=== PATIENT | male | born 1945 | race Caucasian/White ===

== ENCOUNTER 2017-02-17 07:47 | Outpatient (CLI) | payer MEDICARE ==
[2017-02-17 14:39] LABS: CHOL/HDL RATIO 3.5 (<5.0); CHOLESTEROL 152 mg/dL; HDL CHOLESTEROL 43 mg/dL; LDL/HDL RATIO 2.2 (<3.6); TRIGLYCERIDES 81 mg/dL; VLDL CHOLESTEROL 16 mg/dL
== END 2017-02-17 07:48 | disposition home or self-care (01) ==
LOC: LAB.R 07:47
PROVIDERS: ATTEND Internal Medicine
DX: I48.2 Chronic atrial fibrillation (principal); E78.2 Mixed hyperlipidemia
CPT/HCPCS: 80061; 84443

== ENCOUNTER 2017-02-21 09:15 | Outpatient (CLI) | payer MEDICARE | END 2017-02-21 09:16 | disposition home or self-care (01) | DX: I48.2 Chronic atrial fibrillation (principal) ==

== ENCOUNTER 2017-05-04 07:04 | Outpatient (CLI) | payer MEDICARE ==
[2017-05-04 12:35] VITALS: BP 122/68
--- NOTE | 2017-05-05 06:31 | CARDIAC PROCEDURE NOTE ---
DATE OF SERVICE: 05/04/2017 00:00:00 PROCEDURE: Los protocol treadmill for left ventricular echocardiographic imaging. INDICATION: Patient with intermittent atrial fibrillation anticipating an arduous trek and needing cl earance. PROCEDURE IN DETAIL: The patient was exercising in the standard fashion for over 9 minutes. He achiev ed a heart rate well above 85% maximum predicted. He experienced no chest pain, palpations or signifi cant dysrhythmias. No atrial fibrillation was encountered. He had no diagnostic ST or T-wave changes. His blood pressure response was slightly hypertensive. IMPRESSION: Negative treadmill for evidence of ischemia. See echocardiographic interpretation for det ails. JOB #: [id number] EXT JOB #:[id number]
== END 2017-05-04 07:05 | disposition home or self-care (01) ==
LOC: DI 07:04
PROVIDERS: ATTEND Internal Medicine
DX: I48.2 Chronic atrial fibrillation (principal)
CPT/HCPCS: 93350

== ENCOUNTER 2018-05-02 08:00 | Outpatient (CLI) | payer MEDICARE ==
[2018-05-02 11:54] LABS: BASOPHILS % (AUTO) 0.7 %; EOSINOPHILS # (AUTO) 0.1 10^3/uL (0.0-0.7); EOSINOPHILS % (AUTO) 2.6 %; HGB - HEMOGLOBIN 14.1 g/dL (14.0-18.0); LYMPHOCYTES # (AUTO) 1.7 10^3/uL (1.5-3.5); LYMPHOCYTES % (AUTO) 32.2 %; MEAN CORPUSCULAR HEMOGLOBIN 29.8 pg (27.0-31.0); MEAN CORPUSCULAR HGB CONC 33.8 g/dL (32.0-36.0); MEAN CORPUSCULAR VOLUME 88.1 fL (80.0-94.0); MEAN PLATELET VOLUME 7.5 fL (7.4-11.4); MONOCYTES # (AUTO) 0.6 10^3/uL (0.0-1.0); MONOCYTES % (AUTO) 11.5 %; NEUTROPHILS # (AUTO) 2.8 10^3/uL (1.5-6.6); PLT - PLATELET COUNT 225 10^3/uL (130-450); RED BLOOD COUNT 4.75 10^6/uL (4.70-6.10); RED CELL DISTRIBUTION WIDTH 13.7 % (12.0-15.0); WHITE BLOOD COUNT 5.3 x10^3/uL (4.8-10.8)
[2018-05-02 12:32] LABS: ALBUMIN 4.2 g/dL (3.2-5.5); ALBUMIN/GLOBULIN RATIO 1.6 (1.0-2.2); ALKALINE PHOSPHATASE 55 IU/L (42-121); ALT ALANINE AMINOTRANSFERASE 17 IU/L (10-60); AST ASPARTATE AMINOTRANSFERASE 24 IU/L (10-42); BILIRUBIN,TOTAL 0.9 mg/dL (0.2-1.0); BUN - BLOOD UREA NITROGEN 19 mg/dL (6-20); CALCIUM 9.1 mg/dL (8.5-10.3); CARBON DIOXIDE - CO2 26 mmol/L (21-32); CHLORIDE 104 mmol/L (101-111); CHOL/HDL RATIO 3.2 (<5.0); CHOLESTEROL 154 mg/dL; GFR - MDRD 73 (>89); GLUCOSE 90 mg/dL (70-100); HDL CHOLESTEROL 48 mg/dL; LDL CHOLESTEROL,CALCULATED 87 mg/dL; LDL/HDL RATIO 1.8 (<3.6); SODIUM 139 mmol/L (135-145); TOTAL PROTEIN 6.9 g/dL (6.7-8.2); VLDL CHOLESTEROL 19 mg/dL
== END 2018-05-02 08:01 ==
LOC: LAB.R 08:00
PROVIDERS: ATTEND Internal Medicine
DX: I48.91 Unspecified atrial fibrillation (principal); E78.5 Hyperlipidemia, unspecified; K21.9 Gastro-esophageal reflux disease without esophagitis; Z79.899 Other long term (current) drug therapy
CPT/HCPCS: 80053; 80061; 83721; 84443; 85025

== ENCOUNTER 2018-05-09 08:00 | Outpatient (CLI) | payer MEDICARE | END 2018-05-09 08:01 | LOC: LAB.R 08:00 | PROVIDERS: ATTEND Internal Medicine | DX: Z00.8 Encounter for other general examination (principal) | CPT/HCPCS: 84153 ==

== ENCOUNTER 2018-10-24 07:21 | Day surgery (SDC) | payer MEDICARE ==
[2018-10-24] MEDS ORDERED: LACTATED RINGERS 1,000 ML IV ONE (07:56)
[2018-10-24] MEDS ORDERED: fentaNYL 100 MCG/2 ML VIAL IVP ONE (08:34)
[2018-10-24] MEDS ORDERED: MIDAZOLAM 2 MG/2 ML VIAL IVP ONE (08:34)
[2018-10-24 09:23] VITALS: BP 99/65
== END 2018-10-24 07:22 | disposition home or self-care (01) ==
LOC: SDS 07:21
PROVIDERS: ATTEND Internal Medicine
PROC: 0DBM8ZZ Excision of Descending Colon, Via Natural or Artificial Opening Endoscopic (ICD-10-PCS; 2018-10-24)
PROC: 0DBK8ZZ Excision of Ascending Colon, Via Natural or Artificial Opening Endoscopic (ICD-10-PCS; principal; 2018-10-24 08:30)
DX: Z12.11 Encounter for screening for malignant neoplasm of colon (principal); D12.2 Benign neoplasm of ascending colon; D12.4 Benign neoplasm of descending colon; K64.0 First degree hemorrhoids; I48.91 Unspecified atrial fibrillation; Z79.01 Long term (current) use of anticoagulants
CPT/HCPCS: 45380; J7120

== ENCOUNTER 2018-12-04 08:00 | Outpatient (CLI) | payer MEDICARE ==
[2018-12-04 11:04] LABS: BASOPHILS # (AUTO) 0.1 10^3/uL (0.0-0.1); EOSINOPHILS # (AUTO) 0.2 10^3/uL (0.0-0.7); HGB - HEMOGLOBIN 14.6 g/dL (14.0-18.0); LYMPHOCYTES # (AUTO) 1.5 10^3/uL (1.5-3.5); MEAN CORPUSCULAR HEMOGLOBIN 29.4 pg (27.0-31.0); MEAN CORPUSCULAR HGB CONC 34.1 g/dL (32.0-36.0); MEAN CORPUSCULAR VOLUME 86.2 fL (80.0-94.0); MEAN PLATELET VOLUME 8.1 fL (7.4-11.4); MONOCYTES # (AUTO) 0.5 10^3/uL (0.0-1.0); NEUTROPHILS # (AUTO) 3.1 10^3/uL (1.5-6.6); PLT - PLATELET COUNT 198 10^3/uL (130-450); RED BLOOD COUNT 4.96 10^6/uL (4.70-6.10); RED CELL DISTRIBUTION WIDTH 13.9 % (12.0-15.0); WHITE BLOOD COUNT 5.3 x10^3/uL (4.8-10.8)
[2018-12-04 11:05] LABS: CREATININE 0.8 mg/dL (0.6-1.2)
== END 2018-12-04 23:59 | disposition home or self-care (01) ==
LOC: LAB.R 08:00
PROVIDERS: ATTEND Emergency Medicine
DX: I48.91 Unspecified atrial fibrillation (principal); Z79.899 Other long term (current) drug therapy
CPT/HCPCS: 82565; 85025

== ENCOUNTER 2018-12-23 18:10 | Emergency (ER) | payer MEDICARE ==
--- NOTE | 2018-12-23 18:26 | ED Physician Documentation ---
PD HPI CHEST PAIN - Stated complaint Stated Complaint: RAPID HR - Chief complaint Chief Complaint: Cardiac - History obtained from History obtained from: Patient - History of Present Illness Timing - onset: Today (73-year-old gentleman with history of atrial fibrillation on Cardizem and Pradaxa presents with weakness and palpitations that started abruptly an hour ago. There is no chest pain with it. No pedal edema.) Review of Systems Ten Systems: 10 systems reviewed and negative Constitutional: reports: Fatigue. denies: Fever, Chills Cardiac: reports: Palpitations. denies: Chest pain / pressure Respiratory: reports: Dyspnea. denies: Cough PD PAST MEDICAL HISTORY - Past Medical History Cardiovascular: High cholesterol, Atrial fibrillation Respiratory: None Endocrine/Autoimmune: None GI: GERD : None HEENT: None Psych: None Musculoskeletal: Osteoporosis Derm: None - Past Surgical History General: Bowel surgery Ortho: Hip replacement HEENT: Other - Present Medications Home Medications: Ambulatory Orders Medication Instructions Recorded Confirmed Atorvastatin Calcium 20 mg PO DAILY 10/24/18 12/23/18 Dabigatran Etexilate Mesylate 150 mg PO BID 10/24/18 12/23/18 [Pradaxa] Melatonin 5 mg PO DAILY 10/24/18 12/23/18 Sildenafil Citrate [Sildenafil] 20 mg PO DAILY PRN 10/24/18 12/23/18 diltiaZEM CD [Cardizem Cd] 240 mg PO DAILY 10/24/18 12/23/18 - Allergies Allergies/Adverse Reactions: Allergies Allergy/AdvReac Type Severity Reaction Status Date / Time No Known Drug Allergies Allergy Verified 12/23/18 18:14 - Family History Family history: reports: Non contributory PD ED PE NORMAL - Vitals Vital signs reviewed: Yes - General General: Alert and oriented X 3, No acute distress - HEENT HEENT: PERRL, EOMI - Neck Neck: Supple, no meningeal sign, No bony TTP - Cardiac Cardiac: RRR, No murmur - Respiratory Respiratory: No respiratory distress, Clear bilaterally - Abdomen Abdomen: Normal bowel sounds, Soft, Non tender - Back Back: No CVA TTP, No spinal TTP - Derm Derm: Normal color, Warm and dry - Extremities Extremities: No edema, No calf tenderness / cord - Neuro Neuro: Alert and oriented X 3, Normal speech Results - Vitals Vitals: Vital Signs - 24 hr 0312/23/18 12/23/18 18:14 18:23 18:35 Temperature 36.6 C Heart Rate 150 H 85 73 Respiratory 18 19 15 Rate Blood Pressure 147/103 H 157/93 H 139/92 H O2 Saturation 97 98 97 Oxygen O2 Source Room air - EKG (time done) 1820 Rate: Rate (enter#) (158) Rhythm: Other (Regular wide-complex tachycardia most consistent with atrial flutter with aberrancy.) Computer interpretation: Agree with computer 1832 Rate: Rate (enter#) (76) Rhythm: NSR [place]: Normal Intervals: Normal MS QRS: Normal Ischemia: Normal ST segments Computer interpretation: Agree with computer - Labs Labs: Laboratory Tests 12/23/18 12/23/18 18:30 18:30 Sodium 138 Potassium 3.6 Chloride 105 Carbon Dioxide 24 Anion Gap 9.0 BUN 22 H Creatinine 1.2 Estimated GFR (MDRD) 60 L Glucose 135 H Calcium 9.7 Total Bilirubin 1.2 H AST 30 ALT 25 Alkaline Phosphatase 68 Total Protein 7.6 Albumin 4.5 Globulin 3.1 Albumin/Globulin Ratio 1.5 Lipase 43 TSH 2.10 PD MEDICAL DECISION MAKING - ED course ED course: On my evaluation shortly after the EKG was done he had actually converted into a normal sinus rhythm. This is a 73-year-old gentleman with history of atrial fibrillation who presents with what looks like atrial flutter that resolved right after arrival. He was observed with no further arrhythmias. Following up with his processing analyst with advised. Departure - Departure Disposition: 01 Home, Self Care Clinical Impression: Atrial flutter Qualifiers: Atrial flutter type: typical Qualified Code(s): I48.3 - Typical atrial flutter Condition: Good Record reviewed to determine appropriate education?: Yes Instructions: ED Paroxysmal Atrial Flutter Comments: CONTINUE YOUR CURRENT MEDICATIONS AND FOLLOWUP WITH YOUR INSTRUCTOR WATCH ASSEMBLY RETURN IF WORSE.
[2018-12-23 18:55] LABS: ALBUMIN 4.5 g/dL (3.2-5.5); ALBUMIN/GLOBULIN RATIO 1.5 (1.0-2.2); BILIRUBIN,TOTAL 1.2 mg/dL (0.2-1.0); CALCIUM 9.7 mg/dL (8.5-10.3); CREATININE 1.2 mg/dL (0.6-1.2); TOTAL PROTEIN 7.6 g/dL (6.7-8.2)
[2018-12-23 19:34] VITALS: BP 133/80
== END 2018-12-23 20:00 | disposition home or self-care (01) ==
LOC: ED 18:10
DX: I48.3 Typical atrial flutter (principal); I48.91 Unspecified atrial fibrillation; Z79.01 Long term (current) use of anticoagulants
CPT/HCPCS: 36415; 80053; 83690; 84443; 93005; 99284

== ENCOUNTER 2019-02-11 13:23 | Outpatient (CLI) | payer MEDICARE ==
[2019-02-11 13:55] LABS: DIGOXIN 0.2 ng/mL
== END 2019-02-11 13:24 | disposition home or self-care (01) ==
LOC: LAB 13:23
PROVIDERS: ATTEND Internal Medicine Cardiovascular Disease
DX: Z51.81 Encounter for therapeutic drug level monitoring (principal)
CPT/HCPCS: 36415; 80162

== ENCOUNTER 2019-07-17 18:26 | Outpatient (CLI) | payer MEDICARE ==
[2019-07-17 18:43] LABS: BASOPHILS # (AUTO) 0.1 10^3/uL (0.0-0.1); BASOPHILS % (AUTO) 0.9 %; EOSINOPHILS # (AUTO) 0.3 10^3/uL (0.0-0.7); HGB - HEMOGLOBIN 14.6 g/dL (14.0-18.0); LYMPHOCYTES # (AUTO) 2.6 10^3/uL (1.5-3.5); LYMPHOCYTES % (AUTO) 28.3 %; MEAN CORPUSCULAR HEMOGLOBIN 28.3 pg (27.0-31.0); MEAN CORPUSCULAR HGB CONC 32.6 g/dL (32.0-36.0); MEAN PLATELET VOLUME 9.2 fL (7.4-11.4); MONOCYTES % (AUTO) 11.4 %; NEUTROPHILS # (AUTO) 5.1 10^3/uL (1.5-6.6); PLT - PLATELET COUNT 233 10^3/uL (130-450); RED BLOOD COUNT 5.15 10^6/uL (4.70-6.10); WHITE BLOOD COUNT 9.1 x10^3/uL (4.8-10.8)
== END 2019-07-17 18:27 | disposition home or self-care (01) ==
LOC: LAB 18:26
PROVIDERS: ATTEND Family Medicine
DX: K92.1 Melena (principal)
CPT/HCPCS: 36415; 85025

== ENCOUNTER 2019-09-03 21:11 | Observation (INO) | payer MEDICARE ==
[2019-09-03] MEDS ORDERED: diltiaZEM INJ 5 MG/ML VIAL IVP STA ×2 (21:23→21:32)
--- NOTE | 2019-09-03 21:32 | ED Physician Documentation ---
PD HPI CHEST PAIN - Stated complaint Stated Complaint: RAPID HB - Chief complaint Chief Complaint: Cardiac - Additional information Additional information: This is a 74-year-old male with a history of atrial fibrillation atrial flutter on Pradaxa, who presents with rapid heart rate. Patient had a ablation for atrial fibrillation a flutter around a week ago, since then he has had intermittent feelings of palpitations. He denies chest pain but states that he had slight chest soreness since the procedure which is been gradually improve. He denies nausea or vomiting. On our go watching TV started feels heart was racing and he checked and saw his rate was over 150. He denies lightheadedness or shortness of breath. He did take some digoxin before coming here and took his diltiazem 240 mg extended release this morning. His door slinger due to the ablation with Dr. Gomez who works at [employer] in [place], His medical record administrator just is Dr. Ruiz who he is seen in [place] and in [place]. He is a [facility] patient. Review of Systems Constitutional: denies: Fever Throat: denies: Oral lesions / sores Cardiac: reports: Palpitations Respiratory: denies: Dyspnea GI: denies: Abdominal Pain : denies: Dysuria Skin: denies: Rash Neurologic: denies: Generalized weakness Immunocompromised: denies: Immunocompromised PD PAST MEDICAL HISTORY - Past Medical History Cardiovascular: High cholesterol, Atrial fibrillation Respiratory: None Endocrine/Autoimmune: None GI: GERD : None HEENT: None Psych: None Musculoskeletal: Osteoporosis Derm: None - Past Surgical History General: Bowel surgery Ortho: Hip replacement HEENT: Other - Present Medications Home Medications: Ambulatory Orders Medication Instructions Recorded Confirmed Atorvastatin Calcium 20 mg PO DAILY 10/24/18 12/23/18 Dabigatran Etexilate Mesylate 150 mg PO BID 10/24/18 12/23/18 [Pradaxa] Melatonin 5 mg PO DAILY 10/24/18 12/23/18 Sildenafil Citrate [Sildenafil] 20 mg PO DAILY PRN 10/24/18 12/23/18 diltiaZEM CD [Cardizem Cd] 240 mg PO DAILY 10/24/18 12/23/18 - Allergies Allergies/Adverse Reactions: Allergies Allergy/AdvReac Type Severity Reaction Status Date / Time No Known Drug Allergies Allergy Verified 09/03/19 21:15 - Social History Does the pt smoke?: No Smoking Status: Never smoker Does the pt drink ETOH?: No Does the pt have substance abuse?: No PD ED PE NORMAL - Vitals Vital signs reviewed: Yes - General General: Alert and oriented X 3, No acute distress - HEENT HEENT: PERRL - Neck Neck: Supple, no meningeal sign - Cardiac Cardiac: Other (Tachycardia, regular rhythm, no QRS on the monitor with PVCs) - Respiratory Respiratory: Clear bilaterally - Abdomen Abdomen: Soft, Non tender, Non distended - Derm Derm: Warm and dry - Extremities Extremities: No deformity - Neuro Neuro: Alert and oriented X 3 - Psych Psych: Normal mood, Normal affect Results - Vitals Vitals: Vital Signs - 24 hr 09/03/19 09/03/19 09/03/19 21:15 21:30 21:40 Temperature 36.5 C Heart Rate 160 H 107 H 153 H Respiratory 16 15 15 Rate Blood Pressure 110/86 H 106/91 H 94/77 O2 Saturation 98 97 100 09/03/19 09/03/19 09/03/19 21:43 21:50 22:45 Temperature Heart Rate 153 H 100 97 Respiratory 15 15 15 Rate Blood Pressure 109/84 H 107/77 112/98 H O2 Saturation 100 100 98 09/03/19 09/04/19 09/04/19 23:13 00:00 00:20 Temperature Heart Rate 129 H 151 H 154 H Respiratory 15 15 15 Rate Blood Pressure 117/93 H 124/98 H 117/91 H O2 Saturation 100 100 100 Oxygen O2 Source Room air - EKG (time done) 21:17 Other comments: Other comments (Rate 158, rhythm appears narrow and regular, likely atrial flutter with a 2-1 block. There are occasional PVCs. Slight lateral ST depression in V5, no ST segment elevation.) - Labs Labs: Laboratory Tests 09/03/19 09/03/19 09/03/19 21:30 21:30 21:30 WBC 6.9 RBC 4.92 Hgb 14.2 Hct 43.3 MCV 88.0 MCH 28.9 MCHC 32.8 RDW 12.9 Plt Count 248 MPV 8.9 Neut # (Auto) 3.3 Lymph # (Auto) 2.4 Labette # (Auto) 0.9 Eos # (Auto) 0.2 Baso # (Auto) 0.1 Absolute Nucleated RBC 0.00 Nucleated RBC % 0.0 PT 13.9 H INR 1.2 Sodium 138 Potassium 4.1 Chloride 104 Carbon Dioxide 23 Anion Gap 11.0 BUN 23 H Creatinine 1.0 Estimated GFR (MDRD) 73 L Glucose 108 H Calcium 9.4 Total Bilirubin 0.8 AST 20 ALT 21 Alkaline Phosphatase 67 Troponin I High Sens Total Protein 7.3 Albumin 4.2 Globulin 3.1 Albumin/Globulin Ratio 1.4 Lipase 43 09/03/19 09/03/19 21:30 23:35 WBC RBC Hgb Hct MCV MCH MCHC RDW Plt Count MPV Neut # (Auto) Lymph # (Auto) Labette # (Auto) Eos # (Auto) Baso # (Auto) Absolute Nucleated RBC Nucleated RBC % PT INR Sodium Potassium Chloride Carbon Dioxide Anion Gap BUN Creatinine Estimated GFR (MDRD) Glucose Calcium Total Bilirubin AST ALT Alkaline Phosphatase Troponin I High Sens 90.6 H* 89.5 H* Total Protein Albumin Globulin Albumin/Globulin Ratio Lipase - Rads (name of study) CXR 2 view Radiology: Other (No acute cardiopulmonary abnormality) PD MEDICAL DECISION MAKING - ED course Complexity details: considered differential (Dysrhythmia, ACS, electrolyte abnormality, heart failure) ED course: Patient presents well-appearing with a normal blood pressure but with elevated heart rate in the 150s. This is a narrow complex rhythm with PVCs, appears to be atrial flutter. He was placed on a monitor, IV was inserted and he was given 10 mg of diltiazem with temporary improvement to the low 100s of his heart rate. However his heart rate returned to the 130s to 140s he was given a second push of diltiazem again with only temporary improvement. He was started on a diltiazem drip which Was up titrated to 10. His labs revealed a elevated High- sensitivity troponin of 90, however repeat troponin II hours later is stable at 89. He is not having chest pain, and I doubt ACS, this is more likely a tropo dinorah leak, and potentially some elevation related to his recent ablation. Chest x-ray Shows no acute cardiopulmonary abnormality. I spoke with Dr. Corona De of [facility] in [place], reviewed the case and labs with him, he agrees with admission to our hospital, and rate control as well as an echocardiogram. Unless his troponin elevates further, no need for heparin at this time. Dr. Yousef accepted the patient for admission. Plan of care was discussed with patient and his , who are in agreement. He continues to feel well but is still tachycardic. Departure - Departure Disposition: ED Place in Observation Clinical Impression: Atrial fibrillation with RVR Condition: Good
[2019-09-03 21:35] LABS: BASOPHILS # (AUTO) 0.1 10^3/uL (0.0-0.1); EOSINOPHILS # (AUTO) 0.2 10^3/uL (0.0-0.7); EOSINOPHILS % (AUTO) 3.2 %; HGB - HEMOGLOBIN 14.2 g/dL (14.0-18.0); LYMPHOCYTES # (AUTO) 2.4 10^3/uL (1.5-3.5); LYMPHOCYTES % (AUTO) 34.5 %; MEAN CORPUSCULAR HEMOGLOBIN 28.9 pg (27.0-31.0); MEAN CORPUSCULAR HGB CONC 32.8 g/dL (32.0-36.0); MEAN PLATELET VOLUME 8.9 fL (7.4-11.4); MONOCYTES # (AUTO) 0.9 10^3/uL (0.0-1.0); MONOCYTES % (AUTO) 12.8 %; NEUTROPHILS # (AUTO) 3.3 10^3/uL (1.5-6.6); NEUTROPHILS % (AUTO) 47.9 %; PLT - PLATELET COUNT 248 10^3/uL (130-450); RED BLOOD COUNT 4.92 10^6/uL (4.70-6.10); RED CELL DISTRIBUTION WIDTH 12.9 % (12.0-15.0); WHITE BLOOD COUNT 6.9 x10^3/uL (4.8-10.8)
[2019-09-03 21:41] LABS: INR 1.2 (0.8-1.2); PT - PROTHROMBIN TIME 13.9 secs (9.9-12.6)
[2019-09-03 21:53] LABS: ALBUMIN 4.2 g/dL (3.2-5.5); ALBUMIN/GLOBULIN RATIO 1.4 (1.0-2.2); BILIRUBIN,TOTAL 0.8 mg/dL (0.2-1.0); CALCIUM 9.4 mg/dL (8.5-10.3); TOTAL PROTEIN 7.3 g/dL (6.7-8.2)
--- NOTE | 2019-09-03 22:00 | XRAY Report ---
Reason: Chest Pain Procedure Date: 09/03/2019 Accession Number: [id number] / [id number] Procedure: XR - Chest 1 View X-Ray CPT Code: 08598 Final Report FULL RESULT: EXAM: CHEST RADIOGRAPHY EXAM DATE: 09/03/2019 09:35 PM. CLINICAL HISTORY: Chest Pain. COMPARISON: None. TECHNIQUE: 1 view. A total of 2 exposures are provided for review. FINDINGS: Lungs/Pleura: No significant consolidation, effusion, or definite pneumothorax. Mediastinum: Cardiac silhouette is within normal limits when accounting for lung volumes and technique. Other: Right hemidiaphragm eventration noted. No evident acute displaced fracture. IMPRESSION: No acute cardiopulmonary abnormality demonstrated. RADIA
[2019-09-03] MEDS ORDERED: diltiaZEM INJ 5 MG/ML VIAL ONE (22:40)
[2019-09-03] MEDS: diltiaZEM INJ 125 MG in DEXTROSE 5% 100 ML IV STA (23:05)
[2019-09-04] MEDS: diltiaZEM INJ 125 MG in DEXTROSE 5% 100 ML IV STA (00:13)
[2019-09-04] MEDS ORDERED: SODIUM CHLORIDE FLUSH 0.9% 10 ML SYRINGE IVP PRN (00:39)
[2019-09-04] MEDS ORDERED: ACETAMINOPHEN 325 MG TABLET PO PRN (00:39)
--- NOTE | 2019-09-04 00:48 | HISTORY & PHYSICAL EXAMINATION ---
Chief Complaint - Chief Complaint Chief Complaint: Elevated heart rate History of Present Illness - Admitted From Admitted From:: Home - History Obtained From Records Reviewed: Yes History obtained from: Patient, ER Physician, EMR - History of Present Illness HPI Comment/Other: This is a 74-year-old male with a past medical history significant for p aroxysmal atrial fibrillation on Pradaxa who presents today complaining of an elevated heart rate. He states he underwent an ablation last week at [facility]. He states since that time he has had a periodic elevation of his heart rate but that today it was persistently elevated in the 150's. He has kept track of his heart rate with his Fitbit. He denies chest pain or dyspnea. He does report feeling the palpitations. He reports no fevers, chills, nausea, vomiting. He took his Cardizem 240 mg this morning. When his heart rate remained elevated, he took digoxin 125 mcg as well. He states his electric motor repairer had told him to stop the digoxin after the ablation but he took a dose today to try and bring down his heart rate. His milk tester is Dr. Gomez who works at [facility] in [place] and his usual electric motor repairer is Dr. Ruiz who works in [place]. In the emergency department, he is found to be in atrial flutter with heart rates in the 150s and 2:1 block. Initially given Cardizem IV with improvement of his heart rate into the 90s. His heart rate increased again he is given ano ther dose of Cardizem without much improvement. He was then started on a Cardizem infusion at 5 mg an hour. His labs are unremarkable except for troponin of 90. A repeat troponin came down to 89. Cardiology was contacted by the ER physician and felt that transfer was not warranted and recommended obtaining an echocardiogram. Given he remains in rapid ventricular response, we will admit him for further management. I did discuss goals of care with the patient and he would like to be a full code. History - Past Medical History Cardiovascular: reports: High cholesterol, Atrial fibrillation Respiratory: reports: None Endocrine/Autoimmune: reports: None GI: reports: GERD : reports: None HEENT: reports: None Psych: reports: None Musculoskeletal: reports: Osteoporosis Derm: reports: None - Past Surgical History General: reports: Bowel surgery Ortho: reports: Hip replacement HEENT: reports: Other - Family & Social History Family History Comment/Other: He reports his father had a myocardial infarction in his 60s. He was a smoker. He in his 70s from lung cancer. Living arrangement: At home Living Situation: With spouse/s.o. Social History Notes: He has lived on [facility] for the past 4 years since moving from the [facility]. 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 He smoked on and off for about 20 years approximately a pack or two a day. He no longer drinks alcohol after successfully going through rehab. - Substance History Use: Uses substance without health or social issues: NONE Meds/Allgy - Home Medications Home Medications: Ambulatory Orders Medication Instructions Recorded Confirmed Atorvastatin Calcium 20 mg PO DAILY 10/24/18 12/23/18 Dabigatran Etexilate Mesylate 150 mg PO BID 10/24/18 12/23/18 [Pradaxa] Melatonin 5 mg PO DAILY 10/24/18 12/23/18 Sildenafil Citrate [Sildenafil] 20 mg PO DAILY PRN 10/24/18 12/23/18 diltiaZEM CD [Cardizem Cd] 240 mg PO DAILY 10/24/18 12/23/18 - Allergies Allergies/Adverse Reactions: Allergies Allergy/AdvReac Type Severity Reaction Status Date / Time No Known Drug Allergies Allergy Verified 09/03/19 21:15 Review of Systems - Constitutional Constitutional: denies: Fatigue, Fever, Chills, Weakness - Cardiovascular Cariovascular: reports: Palpitations. denies: Chest pain, Edema, Exertional dyspnea, Decr. exercise tolerance - Respiratory Respiratory: denies: Cough, SOB at rest, SOB with exertion - Gastrointestinal Gastrointestinal: denies: Abdominal pain, Nausea, Vomiting - Genitourinary Genitourinary: denies: Dysuria, Frequency, Urgency - Integumentary Integumentary: denies: Rash - Neurological Neurological: denies: General weakness, Focal weakness - All Other Systems All Other Systems: reports: Reviewed and negative Prior Level of Functionality: Independent with ADL's. Exam - Vital Signs Reviewed Vital Signs: Yes Vital Signs: Vital Signs x48h Temp Pulse Resp BP Pulse Ox 09/04/19 00:20 154 H 15 117/91 H 100 09/04/19 00:00 151 H 15 124/98 H 100 09/03/19 23:13 129 H 15 117/93 H 100 09/03/19 22:45 97 15 112/98 H 98 09/03/19 21:50 100 15 107/77 100 09/03/19 21:43 153 H 15 109/84 H 100 09/03/19 21:40 153 H 15 94/77 100 09/03/19 21:30 107 H 15 106/91 H 97 09/03/19 21:15 36.5 C 160 H 16 110/86 H 98 - Physical Exam General Appearance: positive: No acute distress, Alert Eyes Bilateral: positive: Normal inspection ENT: positive: ENT inspection nml Neck: positive: Nml inspection Respiratory: positive: No respiratory distress. negative: Wheezes, Rales, Rhonchi Cardiovascular: positive: Regular rate & rhythm, No murmur, Tachycardia Abdomen: positive: Non-tender, No distention. negative: Tenderness, Guarding, Rebound Skin: positive: No rash, Warm, Dry Extremities: positive: Full ROM, No pedal edema Neurologic/Psychiatric: positive: Oriented x3. negative: Disoriented to person, Disoriented to place, Disoriented to time Conclusion/Plan - Problem List (1) Atrial fibrillation with RVR Conclusion/Plan: He is status post ablation last week but unfortunately he is back in atrial fibrillation/atrial flutter with rapid ventricular response. His rates were initially in the 150s and did improve with Cardizem IV but unfortunately increased again is now on Cardizem IV infusion. ER physician spoke with his electric motor repairer who agreed with observation and titrating his oral Cardizem and possibly adding metoprolol. They also recommend obtaining an echocardiogram. At this time, we will keep him on the Cardizem infusion and increase his oral Cardizem to 360 mg daily. Give him a one-time dose of Lopressor 5 mg IV. Will consider adding oral beta-andrey if he remains difficult to rate control. Continue Pradaxa. Will obtain echocardiogram. Will optimize his electrolytes with potassium greater than 4 and magnesium greater than 2. Monitor on telemetry. (2) Elevated troponin Conclusion/Plan: His troponins are flat suspect secondary to his atrial ablation with rapid ventricle response or possibly postprocedure from his recent ablation. We will recheck a more troponin in the morning. He is fortunately asymptomatic. - Lab Results Lab results reviewed: Yes Fish Bones: 09/03/19 21:30 09/03/19 21:30 - Diagnostic Imaging Results Diagnostic Imaging Results: positive: Final report reviewed - EKG Results EKG Interpreted Independently: Yes EKG Findings: His EKG revealed atrial flutter with heart rate in the 150s and 2:1 block. Core Measures - Anticipated LOS I expect patient to be DC'd or transferred within 96 hours.: Yes - Issues Hospital Issues and Management Plan: Atrial fibrillation w/ RVR requiring IV rate control and titration of home medications. - DVT/VTE - Prophylaxis VTE/DVT Device ordered at admit?: Yes VTE/DVT Prophylaxis med ordered at admit?: No Not Ordered - Medical Reason: Not indicated
[2019-09-04] MEDS ORDERED: diltiaZEM INJ 125 MG in DEXTROSE 5% 100 ML IV SCH (01:00)
[2019-09-04] MEDS ORDERED: METOPROLOL 5 MG/5 ML VIAL IVP STA (01:16)
[2019-09-04] MEDS ORDERED: SODIUM CHLORIDE 0.9% 500 ML IV PRN (01:24)
[2019-09-04] MEDS: SODIUM CHLORIDE FLUSH 0.9% 10 ML SYRINGE IVP SCH ×2 (02:03→02:25)
[2019-09-04 05:01] LABS: BASOPHILS # (AUTO) 0.1 10^3/uL (0.0-0.1); BASOPHILS % (AUTO) 0.7 %; EOSINOPHILS # (AUTO) 0.2 10^3/uL (0.0-0.7); EOSINOPHILS % (AUTO) 2.1 %; HGB - HEMOGLOBIN 13.4 g/dL (14.0-18.0); LYMPHOCYTES % (AUTO) 26.1 %; MEAN CORPUSCULAR HEMOGLOBIN 28.5 pg (27.0-31.0); MEAN CORPUSCULAR HGB CONC 32.3 g/dL (32.0-36.0); MEAN CORPUSCULAR VOLUME 88.3 fL (80.0-94.0); MEAN PLATELET VOLUME 9.3 fL (7.4-11.4); MONOCYTES # (AUTO) 0.8 10^3/uL (0.0-1.0); MONOCYTES % (AUTO) 10.4 %; NEUTROPHILS # (AUTO) 4.5 10^3/uL (1.5-6.6); NEUTROPHILS % (AUTO) 60.2 %; PLT - PLATELET COUNT 251 10^3/uL (130-450); RED CELL DISTRIBUTION WIDTH 13.1 % (12.0-15.0); WHITE BLOOD COUNT 7.5 x10^3/uL (4.8-10.8)
[2019-09-04 05:30] LABS: CALCIUM 9.6 mg/dL (8.5-10.3); CREATININE 0.9 mg/dL (0.6-1.2); PHOSPHORUS 3.5 mg/dL (2.5-4.6)
[2019-09-04] MEDS ORDERED: METOPROLOL TARTRATE 25 MG TABLET PO SCH (09:00)
[2019-09-04] MEDS ORDERED: DABIGATRAN 75 MG CAPSULE PO SCH (09:00)
[2019-09-04] MEDS ORDERED: diltiaZEM CD 180 MG CAPSULE PO SCH (09:00)
--- NOTE | 2019-09-04 13:11 | Discharge Plan ---
Discharge Plan Problem Reviewed?: Yes Disposition: Home, Self Care Condition: Good Prescriptions: Diltiazem HCl [Cardizem Cd] 360 mg PO DAILY #30 cap.er.24h Diet: Regular Activity Restrictions: Activity as Tolerated (and as recommended by Dr. Gomez) Shower Restrictions: Yes (as Dr. Gomez) Driving Restrictions: No Health Concerns: You presented to our emergency room with an ongoing episode of palpitations. You have known atrial fibrillation/atrial flutter and recently underwent an ablation last week with Dr. Gomez. While you are familiar with palpitations, your heart rate usually does not get that fast with them. This time you were in the 150s and came to the emergency room. We did document you as having atrial fibrillation with a rapid ventricular response. You responded to Lopressor IV as well as an increase of your Cardizem from 240 mg to 360 mg. You have gone back into sinus rhythm. Plan of Treatment: 1. Please contact Dr. Gomez and let him know that you were in the hospital. Let him know that you are on Cardizem 360 mg daily and metoprolol as needed. The risk of taking two medicines to slow your rate is a heart block which will slow your heart rate too much. Ask him what you are supposed to do if you keep on going into atrial fibrillation with a rate greater than 150. 2. Check your pulse on a daily basis. This is if you are taking metoprolol and Cardizem together on a regular basis. Sometimes your heart rate can get too slow. If it is consistently in the 40s and 30s, you may need to stop the metoprolol. 3. Continue your anticoagulation to reduce your risk of embolic stroke Care Goals: to stay in sinus rhythm Assessment: pathophysiology discussed with patient and he expresses understanding and will email Dr. Gomez No Smoking: If you smoke, Please STOP! Call for help. Follow-up with: Sunday Enriquez MD [Primary Care Provider] - Ronnie Gomez MD [Other]
[2019-09-04 13:23] VITALS: BP 128/72
[2019-09-04] MEDS ORDERED: ATORVASTATIN 40 MG TABLET PO SCH (21:00)
--- NOTE | 2019-09-06 03:59 | DISCHARGE SUMMARY ---
Physician: Candida Malik MD DATE OF ADMISSION: 09/04/2019 DATE OF DISCHARGE: 09/04/2019 DISCHARGE DIAGNOSES 1. Atrial fibrillation with rapid ventricular response. 2. Elevated troponin. DISCHARGE MEDICATIONS 1. Atorvastatin 20 mg daily. 2. Pradaxa 150 b.i.d. 3. Diltiazem CD 360 mg daily. 4. Melatonin 5 mg daily. 5. Sildenafil 20 mg daily. HOSPITAL COURSE: This is a daniel gentleman who just had an ablation for atrial fibrillation. This was last week. He was warned that he could have recurrent atrial fibrillation in spite of the ablation for up to 45 days after the procedure. What alarmed him was that his Fit that was telling him that his heart rate was over 150 at times, unrelated to exercise and asymptomatic. In the emergency room, he was in atrial fibrillation and initial troponins were mildly elevated. His troponins are elevated in relation to his heart rate and not because of NSTEMI. Cardiology was consulted and they recommended overnight stay with monitoring of his rhythm. His Cardizem was increased to 360. He did receive an IV dose of Lopressor. The patient remained in sinus rhythm, but would have burst of atrial fibrillation, but then go back into sinus rhythm. It was recommended that he take his metoprolol that he has at home on a p.r.n. basis. Check his pulse on a daily basis to make sure his heart rate is not consistently in the 50s or 40s. I also warned him of drug interaction between cardiazem and metoprolol that can cause 2nd or 3rd degree césar. If he has sycope or near syncope to report this to his doctor/descriptive catalog librarian and go to the ER. His descriptive catalog librarian stated to him that it is anticipated he will go in and out of atrial fibrillation. The question that needs to be answered is how fast can his heart rate go before he should return to the hospital. He is discharged in stable condition. Afebrile, pulse 74 and sinus. Blood pressure 128/72, respirations 16, 96% on room air. He does drop his pressures to 88 when he is atrial fibrillation. He is a lean lanky gentleman, who looks his stated age. Neck is supple. Lungs are clear. He has a regular rate and rhythm without any murmurs and his ankles have no edema. He is ambulating in the room without any assistance. TD: 09/05/2019 18:26 BRIELLE
== END 2019-09-04 14:00 | disposition home or self-care (01) ==
LOC: ED 21:11 → ICU 09-04 00:39
PROVIDERS: ADMIT Internal Medicine; ATTEND Specialist
DX: I48.0 Paroxysmal atrial fibrillation (principal); I48.92 Unspecified atrial flutter; R79.89 Other specified abnormal findings of blood chemistry; E78.00 Pure hypercholesterolemia, unspecified; Z79.01 Long term (current) use of anticoagulants; Z87.891 Personal history of nicotine dependence
CPT/HCPCS: 36415; 71045; 80048; 80053; 83690; 83735; 84100; 84484; 85025; 85610; 87150; 93005; 93306; 96365; 96366; 96375; 99284; 99285; A9270; G0378

== ENCOUNTER 2020-10-14 07:47 | Outpatient (CLI) | payer MEDICARE ==
[2020-10-14 08:07] LABS: BASOPHILS # (AUTO) 0.1 10^3/uL (0.0-0.1); BASOPHILS % (AUTO) 1.1 %; EOSINOPHILS # (AUTO) 0.2 10^3/uL (0.0-0.7); EOSINOPHILS % (AUTO) 2.7 %; HGB - HEMOGLOBIN 15.8 g/dL (14.0-18.0); LYMPHOCYTES # (AUTO) 1.8 10^3/uL (1.5-3.5); LYMPHOCYTES % (AUTO) 29.2 %; MEAN CORPUSCULAR HEMOGLOBIN 29.5 pg (27.0-31.0); MEAN CORPUSCULAR HGB CONC 34.2 g/dL (32.0-36.0); MEAN CORPUSCULAR VOLUME 86.4 fL (80.0-94.0); MEAN PLATELET VOLUME 8.8 fL (7.4-11.4); MONOCYTES # (AUTO) 0.6 10^3/uL (0.0-1.0); NEUTROPHILS # (AUTO) 3.5 10^3/uL (1.5-6.6); NEUTROPHILS % (AUTO) 56.7 %; PLT - PLATELET COUNT 221 10^3/uL (130-450); RED BLOOD COUNT 5.35 10^6/uL (4.70-6.10); RED CELL DISTRIBUTION WIDTH 12.7 % (12.0-15.0); WHITE BLOOD COUNT 6.2 x10^3/uL (4.8-10.8)
[2020-10-14 08:17] LABS: ALBUMIN 4.7 g/dL (3.2-5.5); ALBUMIN/GLOBULIN RATIO 1.6 (1.0-2.2); ALKALINE PHOSPHATASE 66 IU/L (42-121); ALT ALANINE AMINOTRANSFERASE 26 IU/L (10-60); AST ASPARTATE AMINOTRANSFERASE 24 IU/L (10-42); BILIRUBIN,TOTAL 1.2 mg/dL (0.2-1.0); BUN - BLOOD UREA NITROGEN 20 mg/dL (6-20); CALCIUM 9.8 mg/dL (8.5-10.3); CARBON DIOXIDE - CO2 23 mmol/L (21-32); CHLORIDE 106 mmol/L (101-111); CHOL/HDL RATIO 4.3 (<5.0); CHOLESTEROL 156 mg/dL; CREATININE 0.9 mg/dL (0.6-1.2); GLUCOSE 110 mg/dL (70-100); HDL CHOLESTEROL 36 mg/dL; LDL CHOLESTEROL,CALCULATED 89 mg/dL; LDL/HDL RATIO 2.5 (<3.6); SODIUM 139 mmol/L (135-145); TOTAL PROTEIN 7.7 g/dL (6.7-8.2); VLDL CHOLESTEROL 31 mg/dL
== END 2020-10-14 07:48 | disposition home or self-care (01) ==
LOC: LAB 07:47
PROVIDERS: ATTEND Family Medicine
DX: I48.92 Unspecified atrial flutter (principal); I48.91 Unspecified atrial fibrillation; M75.40 Impingement syndrome of unspecified shoulder; E78.5 Hyperlipidemia, unspecified; K21.9 Gastro-esophageal reflux disease without esophagitis
CPT/HCPCS: 36415; 80053; 80061; 83721; 84443; 85025

== ENCOUNTER 2021-02-08 20:28 | Outpatient (CLI) | payer MEDICARE | END 2021-02-08 20:29 | disposition home or self-care (01) | LOC: COV 20:28 | PROVIDERS: ATTEND Family Medicine | DX: R05 Cough (principal); R68.83 Chills (without fever); R07.0 Pain in throat; R09.81 Nasal congestion; J34.89 Other specified disorders of nose and nasal sinuses; Z20.822 Contact with and (suspected) exposure to COVID-19 ==

== ENCOUNTER 2021-09-24 09:47 | Outpatient (CLI) | payer MEDICARE | END 2021-09-24 09:48 | disposition home or self-care (01) | LOC: LAB 09:47 | PROVIDERS: ATTEND Internal Medicine Clinical Cardiac Electrophysiology | DX: I48.0 Paroxysmal atrial fibrillation (principal) | CPT/HCPCS: 36415; 82565 ==

== ENCOUNTER 2022-03-06 14:13 | Emergency (ER) | payer MEDICARE ==
[2022-03-06 14:19] VITALS: BP 136/75
--- NOTE | 2022-03-06 14:21 | ED Physician Documentation ---
PD HPI OPHTHO - Stated complaint Stated Complaint: EYE INJURY - Chief complaint Chief Complaint: Heent - History obtained from History obtained from: Patient - History of Present Illness Timing - onset: How many hours ago (1), Today Timing - details: Abrupt onset Location: Left Quality / character: Other (The patient was out walking outdoors and was struck in the left eye with a pine tree branch. He has a feeling of foreign body in the eye. Denies visual acuity change.) Associated symptoms: Tearing, FB sensation. No: Redness, Swelling, Double vision, Loss of vision Contributing factors: Blunt trauma. No: Wears glasses, Wears contacts Recently seen: Surgery (cataract surgery few weeks ago.) Review of Systems Constitutional: denies: Fever, Chills Nose: denies: Rhinorrhea / runny nose, Congestion Throat: denies: Sore throat Respiratory: denies: Cough PD PAST MEDICAL HISTORY - Past Medical History Cardiovascular: High cholesterol, Atrial fibrillation Respiratory: None Neuro: TIA Endocrine/Autoimmune: None GI: GERD : None HEENT: None Psych: None Musculoskeletal: Osteoporosis Derm: None - Past Surgical History General: Bowel surgery Ortho: Hip replacement HEENT: Other - Present Medications Home Medications: Ambulatory Orders Medication Instructions Recorded Confirmed Atorvastatin Calcium 20 mg PO DAILY 10/24/18 09/04/19 Dabigatran Etexilate Mesylate 150 mg PO BID 10/24/18 09/04/19 [Pradaxa] Melatonin 5 mg PO DAILY PRN 10/24/18 09/04/19 Sildenafil Citrate 20 mg PO DAILY PRN 10/24/18 09/04/19 Diltiazem HCl [Cardizem Cd] 360 mg PO DAILY #30 cap.er.24h 09/04/19 Diltiazem HCl [Diltiazem 24Hr ER] 240 mg PO DAILY 09/04/19 09/04/19 - Allergies Allergies/Adverse Reactions: Allergies Allergy/AdvReac Type Severity Reaction Status Date / Time No Known Drug Allergies Allergy Verified 03/06/22 14:16 - Social History Does the pt smoke?: No Smoking Status: Former smoker Does the pt drink ETOH?: No Does the pt have substance abuse?: No PD ED PE NORMAL - Vitals Vital signs reviewed: Yes - General General: Alert and oriented X 3, No acute distress, Well developed/nourished - HEENT HEENT: PERRL, EOMI (eye feels better with proparacaine drops.) PD ED PE EXPANDED - Eyes Eyes: No eyelid FB (everted), Fluorescein uptake (2 oclock position to the iris, superficial dye uptake. ), Anterior chambers clear, Normal fundi. No: Eyelid injury, Eyelid swelling, Corneal FB, Hyphema Results - Vitals Vitals: Vital Signs - 24 hr 03/06/22 14:16 Temperature 36.5 C Heart Rate 72 Respiratory 16 Rate Blood Pressure 136/75 H O2 Saturation 98 Oxygen O2 Source Room air PD MEDICAL DECISION MAKING - ED course Complexity details: considered differential, d/w patient Departure - Departure Disposition: Home, Self Care Clinical Impression: Corneal abrasion Qualifiers: Encounter type: initial encounter Laterality: left Qualified Code(s): S05.02XA - Injury of conjunctiva and corneal abrasion without foreign body, left eye, initial encounter Condition: Stable Record reviewed to determine appropriate education?: Yes Instructions: ED Eye Injury Corneal Abrasion Follow-Up: Sunday Enriquez MD [Primary Care Provider] - Comments: I do not see any foreign bodies on the eye. There was a little bit of pollen appearing material just under the eyelid. There is a corneal abrasion noted superficially on the eye. This is mild enough that it should heal up without any particular intervention over the next couple of days. Lubricating eyedrops to help with discomfort. Tylenol if needed for pains. Recheck if not improved over the next 2 days. You could follow-up with your eye physician. Call us or return if any notable discharge or crusting to suggest infection. Discharge Date/Time: 03/06/22 15:12
== END 2022-03-06 15:12 | disposition home or self-care (01) ==
LOC: ED 14:13
DX: S05.02XA Injury of conjunctiva and corneal abrasion without foreign body, left eye, initial encounter (principal); W22.8XXA Striking against or struck by other objects, initial encounter; Y93.01 Activity, walking, marching and hiking; Z87.891 Personal history of nicotine dependence
CPT/HCPCS: 99281; 99282

== ENCOUNTER 2023-01-17 10:36 | Outpatient (CLI) | payer MEDICARE ==
--- NOTE | 2023-01-17 13:34 | XRAY Report ---
PROCEDURE: Knee 2 View RT INDICATIONS: ARTHRITIS TECHNIQUE: 2 views of the right knee(s) were acquired. COMPARISON: None. FINDINGS: Bones: No fractures or dislocations. No suspicious bony lesions. Medial compartment joint space n arrowing with subchondral sclerosis and small marginal osteophyte Soft tissues: Small effusion. No suspicious soft tissue calcifications or masses. IMPRESSION: Moderate arthritis and small joint effusion Reviewed by: Wade Evans MD on 01/17/2023 12:33 PM [facility] Approved by: Wade Evans MD on 01/17/2023 12:33 PM [facility] Station ID: [id number]
== END 2023-01-17 10:37 | disposition home or self-care (01) ==
LOC: DI 10:36
PROVIDERS: ATTEND Family Medicine
DX: M17.11 Unilateral primary osteoarthritis, right knee (principal); M25.461 Effusion, right knee

== ENCOUNTER 2023-02-01 08:10 | Outpatient (CLI) | payer MEDICARE ==
[2023-02-01 08:30] LABS: BASOPHILS # (AUTO) 0.1 10^3/uL (0.0-0.1); BASOPHILS % (AUTO) 0.9 %; EOSINOPHILS # (AUTO) 0.3 10^3/uL (0.0-0.7); EOSINOPHILS % (AUTO) 5.4 %; HCT - HEMATOCRIT 42.2 % (42.0-52.0); HGB - HEMOGLOBIN 13.9 g/dL (14.0-18.0); LYMPHOCYTES # (AUTO) 1.7 10^3/uL (1.5-3.5); LYMPHOCYTES % (AUTO) 29.3 %; MEAN CORPUSCULAR HEMOGLOBIN 28.8 pg (27.0-31.0); MEAN CORPUSCULAR HGB CONC 32.9 g/dL (32.0-36.0); MEAN CORPUSCULAR VOLUME 87.6 fL (80.0-94.0); MEAN PLATELET VOLUME 9.2 fL (7.4-11.4); MONOCYTES # (AUTO) 0.7 10^3/uL (0.0-1.0); MONOCYTES % (AUTO) 11.6 %; NEUTROPHILS % (AUTO) 52.5 %; PLT - PLATELET COUNT 214 10^3/uL (130-450); RED BLOOD COUNT 4.82 10^6/uL (4.70-6.10); RED CELL DISTRIBUTION WIDTH 13.1 % (12.0-15.0); WHITE BLOOD COUNT 5.8 x10^3/uL (4.8-10.8)
[2023-02-01 08:41] LABS: ALBUMIN 4.1 g/dL (3.2-5.5); ALBUMIN/GLOBULIN RATIO 1.5 (1.0-2.2); BILIRUBIN,TOTAL 1.1 mg/dL (0.2-1.0); CALCIUM 9.3 mg/dL (8.5-10.3); CREATININE 0.9 mg/dL (0.6-1.2); POTASSIUM 4.3 mmol/L (3.5-5.0); TOTAL PROTEIN 6.9 g/dL (6.7-8.2)
== END 2023-02-01 08:11 | disposition home or self-care (01) ==
LOC: LAB 08:10
PROVIDERS: ATTEND Internal Medicine Cardiovascular Disease
DX: I48.0 Paroxysmal atrial fibrillation (principal); E78.00 Pure hypercholesterolemia, unspecified
CPT/HCPCS: 36415; 80053; 80061; 81599; 85025

== ENCOUNTER 2023-02-09 10:13 | Emergency (ER) | payer MEDICARE ==
[2023-02-09 10:24] VITALS: BP 120/79
[2023-02-09] MEDS ORDERED: BACITRACIN ZINC OINT 1 PACKET TOP STA (12:00)
[2023-02-09] MEDS ORDERED: lidocaine 1% 20 ML MDV SUBQ ONE (12:00)
--- NOTE | 2023-02-09 12:01 | ED Physician Documentation ---
History of Present Illness - Stated complaint Stated Complaint: CUT ON LFT FINGER - Chief complaint Chief Complaint: Laceration - Additonal information Additional information: 77-year-old male who is right-hand dominant presents emergency department for evaluation of a laceration to the distal tip of his left index finger. He was using Hand hari when he accidentally cut through the distal tip. Had difficult time achieving hemostasis as he is anticoagulated secondary to history of A-fib. Patient reports tetanus is up-to-date Review of Systems Skin: reports: Laceration (s) PD PAST MEDICAL HISTORY - Past Medical History Past Medical History: Yes Cardiovascular: High cholesterol, Atrial fibrillation Respiratory: None Neuro: TIA Endocrine/Autoimmune: None GI: GERD : None HEENT: None Psych: None Musculoskeletal: Osteoporosis Derm: None - Past Surgical History General: Bowel surgery Ortho: Hip replacement HEENT: Other - Present Medications Home Medications: Ambulatory Orders Medication Instructions Recorded Confirmed Atorvastatin Calcium 20 mg PO DAILY 10/24/18 09/04/19 Dabigatran Etexilate Mesylate 150 mg PO BID 10/24/18 09/04/19 [Pradaxa] Melatonin 5 mg PO DAILY PRN 10/24/18 09/04/19 Sildenafil Citrate 20 mg PO DAILY PRN 10/24/18 09/04/19 Diltiazem HCl [Cardizem Cd] 360 mg PO DAILY #30 cap.er.24h 09/04/19 Diltiazem HCl [Diltiazem 24Hr ER] 240 mg PO DAILY 09/04/19 09/04/19 Ketotifen Fumarate [Alaway] 3 drops RIGHTEYE QID PRN #10 ml 05/21/22 - Allergies Allergies/Adverse Reactions: Allergies Allergy/AdvReac Type Severity Reaction Status Date / Time No Known Drug Allergies Allergy Verified 02/09/23 10:24 - Social History Does the pt smoke?: No Smoking Status: Never smoker Does the pt drink ETOH?: No Does the pt have substance abuse?: No PD ED PE EXPANDED - Extremities Extremities: Left finger(s) (2 cm laceration distal tip of left index finger. Bleeding controlled with pressure. Neurovascularly intact. Able to flex and extend at DIP joint) Results - Vitals Vitals: Vital Signs - 24 hr 02/09/23 10:19 Temperature 36.5 C Heart Rate 67 Respiratory 20 Rate Blood Pressure 120/79 O2 Saturation 98 Oxygen O2 Source Room air Procedures - Laceration (location) left index finger Length in cm: 2 Wound type: Linear, Into subcut fat Neurovascular status: Sensory intact, Motor intact Tendon involvement: Tendon intact Anesthesia: Lidocaine 1% Wound preparation: Chlorhexadine, Irrigated copiously NS Skin layer closure: Nylon, Interrupted, Size #-0 - enter number (5), Sutures - enter # (4) Other: Patient tolerated well, No complications, Neurovascular intact, Tetanus UTD PD Medical Decision Making - ED course Complexity details: reviewed results, re-evaluated patient, d/w patient ED course: 77-year-old male presents to the emergency department for distal left fingertip laceration sustained when using hand tremors to prone at home. He is anticoagulated on Eliquis. Bleeding was controlled with pressure. Patient's laceration appears simple and that he is neurovascularly intact. Wound easily closed with four 5-0 interrupted sutures. Tetanus is [id number] wound care and emergent return precautions discussed. Departure - Departure Disposition: 01 Home, Self Care Clinical Impression: Laceration of index finger Qualifiers: Encounter type: initial encounter Damage to nail status: without damage Foreign body presence: without foreign body Laterality: left Qualified Code(s): S61.211A - Laceration without foreign body of left index finger without damage to nail, initial encounter Condition: Stable Record reviewed to determine appropriate education?: Yes Comments: Your suture(s) should be removed in 7 to 10 days. In 24 hours you may remove the dressing wash gently with warm soap and water, apply any antibiotic ointment and a simple bandage. Your tetanus is up-to-date. Please attempt to keep your wound clean and dry. Do not submerge it in dirty dishwater or bath water. Return to the emergency department if you have any concerns of infection such as redness, fevers milky drainage increased pain.
== END 2023-02-09 12:23 | disposition home or self-care (01) ==
LOC: ED 10:13
DX: S61.211A Laceration without foreign body of left index finger without damage to nail, initial encounter (principal); W27.1XXA Contact with garden tool, initial encounter; Y93.H2 Activity, gardening and landscaping
CPT/HCPCS: 12001; 99282; A9270

== ENCOUNTER 2023-02-17 13:21 | Outpatient (CLI) | payer MEDICARE | END 2023-02-17 13:22 | disposition home or self-care (01) | LOC: MAC.MOP 13:21 | PROVIDERS: ATTEND Family Medicine | DX: I48.92 Unspecified atrial flutter (principal) | CPT/HCPCS: 93242 ==

== ENCOUNTER 2023-03-03 15:57 | Outpatient (CLI) | payer MEDICARE | END 2023-03-03 15:58 | disposition home or self-care (01) | LOC: MAC.INF 15:57 | PROVIDERS: ATTEND Family Medicine | DX: I47.1 Supraventricular tachycardia (principal); I49.1 Atrial premature depolarization; I49.3 Ventricular premature depolarization | CPT/HCPCS: 93244 ==

== ENCOUNTER 2023-06-08 08:45 | Outpatient (CLI) | payer MEDICARE ==
[2023-06-08 08:54] LABS: BASOPHILS # (AUTO) 0.1 10^3/uL (0.0-0.1); BASOPHILS % (AUTO) 1.2 %; EOSINOPHILS # (AUTO) 0.5 10^3/uL (0.0-0.7); HGB - HEMOGLOBIN 14.1 g/dL (14.0-18.0); LYMPHOCYTES # (AUTO) 1.5 10^3/uL (1.5-3.5); LYMPHOCYTES % (AUTO) 24.5 %; MEAN CORPUSCULAR HEMOGLOBIN 29.6 pg (27.0-31.0); MEAN CORPUSCULAR HGB CONC 33.6 g/dL (32.0-36.0); MEAN CORPUSCULAR VOLUME 88.1 fL (80.0-94.0); MEAN PLATELET VOLUME 8.7 fL (7.4-11.4); MONOCYTES # (AUTO) 0.7 10^3/uL (0.0-1.0); MONOCYTES % (AUTO) 11.8 %; NEUTROPHILS # (AUTO) 3.2 10^3/uL (1.5-6.6); NEUTROPHILS % (AUTO) 53.2 %; PLT - PLATELET COUNT 221 10^3/uL (130-450); RED BLOOD COUNT 4.77 10^6/uL (4.70-6.10); RED CELL DISTRIBUTION WIDTH 12.9 % (12.0-15.0)
[2023-06-08 09:24] LABS: FECAL OCCULT BLOOD (FIT) NEGATIVE (NEGATIVE)
[2023-06-08 09:27] LABS: FERRITIN 30.8 ng/mL (23.9-336.2)
== END 2023-06-08 08:46 | disposition home or self-care (01) ==
LOC: LAB 08:45
PROVIDERS: ATTEND Physician Assistant
DX: K92.1 Melena (principal)
CPT/HCPCS: 36415; 82274; 82728; 83540; 84466; 85025

== ENCOUNTER 2023-09-18 08:13 | Outpatient (CLI) | payer MEDICARE ==
[2023-09-18 08:40] LABS: BASOPHILS # (AUTO) 0.1 10^3/uL (0.0-0.1); BASOPHILS % (AUTO) 1.4 %; EOSINOPHILS # (AUTO) 0.5 10^3/uL (0.0-0.7); EOSINOPHILS % (AUTO) 7.6 %; HCT - HEMATOCRIT 41.4 % (42.0-52.0); LYMPHOCYTES # (AUTO) 1.8 10^3/uL (1.5-3.5); LYMPHOCYTES % (AUTO) 27.2 %; MEAN CORPUSCULAR HGB CONC 33.8 g/dL (32.0-36.0); MEAN CORPUSCULAR VOLUME 85.9 fL (80.0-94.0); MEAN PLATELET VOLUME 8.9 fL (7.4-11.4); MONOCYTES # (AUTO) 0.8 10^3/uL (0.0-1.0); MONOCYTES % (AUTO) 12.6 %; NEUTROPHILS # (AUTO) 3.3 10^3/uL (1.5-6.6); PLT - PLATELET COUNT 199 10^3/uL (130-450); RED BLOOD COUNT 4.82 10^6/uL (4.70-6.10); RED CELL DISTRIBUTION WIDTH 13.3 % (12.0-15.0); WHITE BLOOD COUNT 6.4 x10^3/uL (4.8-10.8)
[2023-09-18 09:03] LABS: ALBUMIN 4.2 g/dL (3.2-5.5); ALBUMIN/GLOBULIN RATIO 1.7 (1.0-2.2); ALKALINE PHOSPHATASE 59 IU/L (42-121); ALT ALANINE AMINOTRANSFERASE 19 IU/L (10-60); AST ASPARTATE AMINOTRANSFERASE 20 IU/L (10-42); BILIRUBIN,TOTAL 0.9 mg/dL (0.2-1.0); BUN - BLOOD UREA NITROGEN 19 mg/dL (6-20); CALCIUM 9.8 mg/dL (8.5-10.3); CARBON DIOXIDE - CO2 30 mmol/L (21-32); CHLORIDE 105 mmol/L (101-111); CHOLESTEROL 128 mg/dL; GFR - MDRD 72 (>89); GLUCOSE 104 mg/dL (74-104); HDL CHOLESTEROL 43 mg/dL; LDL CHOLESTEROL,CALCULATED 58 mg/dL; LDL/HDL RATIO 1.3 (<3.6); POTASSIUM 4.8 mmol/L (3.5-4.5); SODIUM 140 mmol/L (135-145); TOTAL PROTEIN 6.7 g/dL (6.4-8.9); TRIGLYCERIDES 136 mg/dL (48-352); VLDL CHOLESTEROL 27 mg/dL
[2023-09-18 09:16] LABS: THYROID STIMULATING HORMONE 1.42 uIU/mL (0.34-5.60)
== END 2023-09-18 08:14 | disposition home or self-care (01) ==
LOC: LAB 08:13
PROVIDERS: ATTEND Family Medicine
DX: I48.91 Unspecified atrial fibrillation (principal); E78.5 Hyperlipidemia, unspecified; K21.9 Gastro-esophageal reflux disease without esophagitis
CPT/HCPCS: 36415; 80053; 80061; 83721; 84443; 85025

== ENCOUNTER 2023-10-13 06:19 | Day surgery (SDC) | payer MEDICARE ==
[2023-10-13] MEDS ORDERED: LACTATED RINGERS 1,000 ML IV ONE ×2 (06:44→08:25)
--- NOTE | 2023-10-13 06:55 | ANESTHESIA ---
Pre-Anesthesia VS, & Labs - Diagnosis hx colon polyps - Procedure egd, colonoscopy Vital Signs: Temp Pulse Resp BP Pulse Ox O2 Flow Rate 36.0 C L 53 L 17 126/82 H 97 10/13/23 06:44 10/13/23 06:44 10/13/23 06:44 10/13/23 06:44 10/13/23 06:44 Height: 6 ft - NPO >8 hours Last Fluid Intake: am prep - Lab Results Lab results reviewed: Yes Home Medications and Allergies Home Medications: Ambulatory Orders Dabigatran Etexilate Mesylate [Pradaxa] 150 mg PO BID 10/12/23 Losartan Potassium 12.5 mg PO DAILY 10/12/23 Sotalol [Betapace] 80 mg PO BID 10/12/23 Atorvastatin Calcium 20 mg PO DAILY 10/24/18 Dabigatran Etexilate Mesylate [Pradaxa] 150 mg PO BID 10/12/23 Losartan Potassium 12.5 mg PO DAILY 10/12/23 Sotalol [Betapace] 80 mg PO BID 10/12/23 Allergies/Adverse Reactions: Allergies Allergy/AdvReac Type Severity Reaction Status Date / Time No Known Drug Allergies Allergy Verified 10/12/23 11:44 Anes History & Medical History - Anesthetic History Anesthesia Complications: reports: No previous complications Family history of Anesthesia Complications: Denies Family history of Malignant Hyperthermia: Denies - Medical History Cardiovascular: reports: High cholesterol, Atrial fibrillation Pulmonary: reports: None Gastrointestinal: reports: GERD, Hiatal hernia Urinary: reports: None Neuro: reports: TIA Musculoskeletal: reports: Osteoarthritis, Osteoporosis Endocrine/Autoimmune: reports: None Blood Disorders: reports: None Skin: reports: None Smoking Status: Never smoker - Surgical History General: reports: Bowel surgery Eyes Ears Nose Throat (EENT): reports: Other Orthopedic: reports: Hip replacement Exam General: Alert, Oriented x3, Cooperative Dental: WNL Mouth Openin Fingerbreadth Neck Mobility: Normal Mallampati classification: II Thyromental Distance: 4-6 cm Respiratory: Lungs clear, Normal breath sounds, No respiratory distress Cardiovascular: Regular rate Neurological: Normal speech Plan Anesthesia Type: General, Total IV Consent for Procedure(s) Verified and Reviewed: Yes Code Status: Attempt Resuscitation ASA classification: 3-Severe systemic disease Is this case an emergency?: No
[2023-10-13] MEDS ORDERED: MIDAZOLAM 2 MG/2 ML VIAL ONE (07:09)
[2023-10-13] MEDS ORDERED: PROPOFOL 500 MG/50 ML 500 MG/50 ML VIAL ONE (07:10)
[2023-10-13] MEDS ORDERED: LIDOCAINE-PF 2% 10 ML AMP SUBQ ONE (07:12)
--- NOTE | 2023-10-13 07:31 | HISTORY & PHYSICAL EXAMINATION ---
Chief Complaint - Chief Complaint Chief Complaint: here for colonoscopy and egd History of Present Illness - History Obtained From Records Reviewed: yes History obtained from: pt Exam Limitations: none - History of Present Illness HPI Comment/Other: history colon polyp 2019 and concern for gerd History - Past Medical History Cardiovascular: reports: High cholesterol, Atrial fibrillation Respiratory: reports: None Neuro: reports: TIA Endocrine/Autoimmune: reports: None GI: reports: GERD, Hiatal hernia : reports: None HEENT: reports: None Psych: reports: None Musculoskeletal: reports: Osteoarthritis, Osteoporosis Derm: reports: None MRSA Hx?: No - Past Surgical History General: reports: Bowel surgery Ortho: reports: Hip replacement HEENT: reports: Other - Family & Social History Family History Comment/Other: He reports his father had a myocardial infarction in his 60s. He was a smoker. He in his 70s from lung cancer. Social History Notes: He has lived on [facility] for the past 4 years since moving from the [facility]. 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 He smoked on and off for about 20 years approximately a pack or two a day. He no longer drinks alcohol after successfully going through rehab. - Substance History Use: Uses substance without health or social issues: NONE Meds/Allgy - Home Medications Home Medications: Ambulatory Orders Medication Instructions Recorded Confirmed Atorvastatin Calcium 20 mg PO DAILY 10/24/18 10/12/23 Dabigatran Etexilate Mesylate 150 mg PO BID 10/12/23 10/12/23 [Pradaxa] Losartan Potassium 12.5 mg PO DAILY 10/12/23 10/12/23 Sotalol [Betapace] 80 mg PO BID 10/12/23 10/12/23 - Allergies Allergies/Adverse Reactions: Allergies Allergy/AdvReac Type Severity Reaction Status Date / Time No Known Drug Allergies Allergy Verified 10/12/23 11:44 Review of Systems - Other Findings Other Findings: history frequend pvcs. improved 10 pt ros as above otherwise unremarkable Exam - Vital Signs Vital Signs: Vital Signs x48h Temp Pulse Resp BP Pulse Ox 10/13/23 06:44 36.0 C L 53 L 17 126/82 H 97 - Physical Exam General Appearance: positive: No acute distress, Alert Eyes Bilateral: positive: PERRL, EOMI ENT: positive: No signs of dehydration Neck: positive: No JVD, Trachea midline Respiratory: positive: No respiratory distress Cardiovascular: positive: Regular rate & rhythm Abdomen: positive: No distention Neurologic/Psychiatric: positive: Oriented x3 Conclusion/Plan - Problem List (1) Colon cancer screening Conclusion/Plan: history colon polyps and concern for gerd. plan colonoscopy and egd. parq held and consent obtained - Lab Results Lab results reviewed: Yes
[2023-10-13] MEDS ORDERED: GLYCOPYRROLATE 1 MG/5 ML VIAL ONE (07:32)
[2023-10-13] MEDS ORDERED: ePHEDrine 50 MG/ML VIAL IVP ONE (07:40)
--- NOTE | 2023-10-13 08:32 | ANESTHESIA POST OP EVALUATION ---
Anesthesia Post Eval - Post Anesthesia Eval Vitals: Last Vital Signs Temp 36.0 C L 10/13/23 06:44 Pulse 53 L 10/13/23 06:44 Resp 17 10/13/23 06:44 BP 126/82 H 10/13/23 06:44 Pulse Ox 97 10/13/23 06:44 O2 Flow Rate CV Function Including HR & BP: Stable Pain Control: Satisfactory Nausea & Vomiting: Negative Mental Status: Baseline Respiratory Status: Airway Patent Hydration Status: Satisfactory Anesthesia Complications: None
[2023-10-13 08:35] VITALS: O2SAT 96
[2023-10-13 08:55] VITALS: BP 97/73
== END 2023-10-13 06:20 | disposition home or self-care (01) ==
LOC: SDS 06:19
PROVIDERS: ATTEND Surgery
PROC: 0DBH8ZZ Excision of Cecum, Via Natural or Artificial Opening Endoscopic (ICD-10-PCS; 2023-10-13)
PROC: 0DB58ZX Excision of Esophagus, Via Natural or Artificial Opening Endoscopic, Diagnostic (ICD-10-PCS; 2023-10-13)
PROC: 0DB68ZX Excision of Stomach, Via Natural or Artificial Opening Endoscopic, Diagnostic (ICD-10-PCS; 2023-10-13)
PROC: 0DBK8ZZ Excision of Ascending Colon, Via Natural or Artificial Opening Endoscopic (ICD-10-PCS; principal; 2023-10-13 07:30)
DX: Z12.11 Encounter for screening for malignant neoplasm of colon (principal); D12.2 Benign neoplasm of ascending colon; K63.5 Polyp of colon; K21.9 Gastro-esophageal reflux disease without esophagitis; I48.91 Unspecified atrial fibrillation; Z79.01 Long term (current) use of anticoagulants
CPT/HCPCS: 43239; 45380; J7120

== ENCOUNTER 2024-05-09 07:59 | Outpatient (CLI) | payer MEDICARE ==
--- NOTE | 2024-05-09 11:39 | XRAY Report ---
PROCEDURE: Hip w/Pelvis 2-3V RT INDICATIONS: HIP JOINT PAIN,RIGHT TECHNIQUE: 4 views of the hip were acquired. COMPARISON: None. FINDINGS: Bones: No fractures or dislocations. Moderate right femoroacetabular joint space narrowing and juxta -articular osteophytosis. Left total hip arthroplasty hardware is intact with no perihardware lucency to suggest hardware loosening with anatomic alignment. Degenerative changes of the lower lumbar spin e. No suspicious bony lesions. Soft tissues: No suspicious soft tissue calcifications or masses. IMPRESSION: 1.No acute bony abnormality. If there remains a high clinical concern for fracture, consider cross-se ctional imaging now. If pain persists, consider repeat x-ray in 10-14 days or cross-sectional imaging . 2.Moderate right hip osteoarthritis. 3.Left total hip arthroplasty hardware is intact without complication. Reviewed by: Tricia Coleman MD on 05/09/2024 11:38 AM PDT Approved by: Tricia Coleman MD on 05/09/2024 11:38 AM PDT Station ID: [id number]
== END 2024-05-09 08:00 | disposition home or self-care (01) ==
LOC: DI 07:59
PROVIDERS: ATTEND Emergency Medicine
DX: M16.11 Unilateral primary osteoarthritis, right hip (principal); Z96.642 Presence of left artificial hip joint

== ENCOUNTER 2024-05-23 09:22 | Outpatient (CLI) | payer MEDICARE ==
--- NOTE | 2024-05-24 18:19 | CT Report ---
PROCEDURE: Lower Extremity RT WO INDICATIONS: RIGHT HIP JOINT PAIN TECHNIQUE: Noncontrast 3-mm axial sections acquired from the distal tibial shaft to the talar dome, with coronal and sagittal reformats. For radiation dose reduction, the following was used: automated exposure c ontrol, adjustment of mA and/or kV according to patient size. COMPARISON: None. FINDINGS: Image quality: Excellent. Bones: Bridging osteophyte of the right sacroiliac joint. The visualized right sacral alar is intact . Chondrocalcinosis of the pubic symphysis, representing CPPD arthropathy. The right hip is well alig skinny. No acute fracture or dislocation of the right hip. Moderate degenerative changes of the right hi p. Soft tissues: The prostate is mildly enlarged, partially visualized. Moderate amount of stool in the rectum. Impression: Moderate degenerative change of the right hip. No acute fracture or dislocation of the ri ght hip. Reviewed by: Ching Buitrago MD on 05/24/2024 6:18 PM PDT Approved by: Ching Buitrago MD on 05/24/2024 6:18 PM PDT Station ID: [id number]
== END 2024-05-23 09:23 | disposition home or self-care (01) ==
LOC: DI 09:22
PROVIDERS: ATTEND Emergency Medicine
DX: M25.551 Pain in right hip (principal); M16.11 Unilateral primary osteoarthritis, right hip